=== PATIENT | female | born 1980 | race Two or more races ===

== ENCOUNTER → 2025-04-04 | Outpatient (CLI) | payer BC, SELFPAY ==
--- NOTE | 2025-04-04 08:00 | XR_ITS ---
Examination: Screening digital mammography, bilateral Computer aided detection 3-D breast Tomosynthesis, bilateral Date and time of exam: April 04, 2025 0751 hours Compared to mammograms dating to August 18, 2022 Indication: Screening Technique: Nonmagnified MLO, CC views of the breasts to been obtained, reconstructed from 3-D Tomosynthesis images. R2 computer aided detection program utilized for evaluation of suspicious masses and/or abnormal calcifications. 3-D Tomosynthesis images obtained. Findings: The breasts are heterogeneously dense, which may obscure small masses 14 mm circumscribed mass upper outer left breast which may represent a cyst Impression: BI-RADS Category 0: Incomplete: Need additional imaging evaluation Recommend left breast sonography follow-up to confirm 4 cm cyst upper outer left breast
== END | disposition home or self-care (01) ==
LOC: CDIM 07:45
PROVIDERS: Referring Provider Specialist; Visit Provider Specialist
DX: Z12.31 Encounter for screening mammogram for malignant neoplasm of breast (principal); R92.8 Other abnormal and inconclusive findings on diagnostic imaging of breast
CPT/HCPCS: 77063; 77067

== ENCOUNTER → 2025-04-29 | Outpatient (CLI) | payer BC, SELFPAY ==
--- NOTE | 2025-04-29 07:07 | XR_ITS ---
Examination: Breast ultrasound, unilateral, left complete Date and time of exam: April 29, 2025 0716 hours INDICATIONS: Mammogram 07/05/2025 14 mm circumscribed mass upper outer left breast Technique: Real-time marks scale ultrasonographic imaging performed left breast including all 4 quadrants as well as nipple retroareolar and axillary region. Findings: Multiple benign cysts, the largest in the 12:00 position 25 x 18 mm 9:00 nodule circumscribed 6 x 6 mm Dilated retroareolar ducts IMPRESSION: BI-RADS Category 2: Benign findings
== END | disposition home or self-care (01) ==
LOC: CDIM 06:44
PROVIDERS: Referring Provider Specialist; Visit Provider Specialist
DX: R92.8 Other abnormal and inconclusive findings on diagnostic imaging of breast (principal)
CPT/HCPCS: 76641

== ENCOUNTER → 2025-11-10 | Outpatient (CLI) | payer BC, SELFPAY ==
--- NOTE | 2025-11-10 10:31 | XR_ITS ---
Examination: Lumbar spine, 4 views Technique: Lumbar spine AP, lateral, RPO LPO 4 views Exam date and time: November 10, 2025, 1107 hours INDICATIONS: Low back pain radiating down the left leg beginning 3 weeks ago FINDINGS: Moderate osteopenia No lumbar fracture Advanced degenerative disc disease L2-L3 with anterior osteophyte formation Moderate diffuse facet arthropathy IMPRESSION: Advanced degenerative disc disease L2-L3 As clinically warranted, MRI lumbar spine without contrast follow-up would best assess for soft tissue disc protrusion producing radicular left leg pain
--- NOTE | 2025-11-10 10:31 | XR_ITS ---
EXAMINATION: Cervical spine, 5 views Technique: Cervical spine AP, AP odontoid, lateral, bilateral obliques, 5 views Exam date and time: November 10, 2025, 11:06 a.m. INDICATIONS: Neck pain years. FINDINGS: Reversal normal cervical lordosis. Moderate to advanced cervical disc narrowing C4-C5, C5-C6, C6-C7 with posterior osteophyte formation and moderate bilateral neuroforaminal stenosis No fracture Intact odontoid IMPRESSION: Moderate to advanced degenerative disc disease C4-C5, C5-C6, C6-C7 with moderate bilateral neural foraminal stenosis
== END | disposition home or self-care (01) ==
PROVIDERS: PCP Chiropractor; Referring Provider Chiropractor; Visit Provider Chiropractor
DX: M51.360 Other intervertebral disc degeneration, lumbar region with discogenic back pain only (principal); M50.321 Other cervical disc degeneration at C4-C5 level; M48.02 Spinal stenosis, cervical region
CPT/HCPCS: 72050; 72110